=== PATIENT | female | born 1985 | race Caucasian/White ===

== ENCOUNTER 2023-01-03 00:31 | Emergency (ER) | payer MEDICAID ==
[~2023-01-03] VITALS: Ht 160 cm; Wt 83.0 kg
[2023-01-03 00:31] VITALS: BP 137/89
[2023-01-03] MEDS ORDERED: OMEP20TA PO (04:55)
== END 2023-01-03 05:44 | disposition home or self-care (01) ==
LOC: ER 00:31
DX: K21.9 Gastro-esophageal reflux disease without esophagitis (principal); Z88.6 Allergy status to analgesic agent

== ENCOUNTER 2025-03-29 22:26 | Inpatient (IN) | payer MEDICAID ==
[~2025-03-29] VITALS: Ht 160 cm; Wt 170.0 kg
[~2025-03-29 22:26] MED LIST: OMEP20TA PO
[2025-03-29 23:23] LABS: Basophils # (auto) 0.1 10 ^3/uL (0-0.2); Basophils % (auto) 0.8 % (0.0-2.0); Eosinophils # (auto) 0.1 10 ^3/uL (0-0.8); Eosinophils % (auto) 0.6 % (0.0-7.0); Hemoglobin 9.5 g/dL (12.2-16.2); Lymphocytes # (auto) 1.8 10 ^3/uL (0.4-5.4); Lymphocytes % (auto) 16.3 % (10.0-50.0); Mean Corpuscular Hemoglobin 22.3 pg (28.0-32.0); Mean Corpuscular Hgb Conc. 31.7 g/dL (32.0-36.0); Mean Corpuscular Volume 70.5 fL (80.0-100.0); Monocytes # (auto) 0.5 10 ^3/uL (0-1.3); Monocytes % (auto) 4.8 % (0.0-12.0); Neutrophils # (auto) 8.6 10 ^3/uL (1.6-8.6); Neutrophils % (auto) 77.5 % (37.0-80.0); Platelet Count (auto) 321 10^3/uL (140-450); Red Blood Cells 4.26 10^6/uL (4.0-5.20); Red Cell Distribution Width 16.3 % (11.8-14.3)
[2025-03-29 23:29] LABS: Chloride 104 mmol/L (98-107); Potassium 3.7 mmol/L (3.5-5.1); Sodium 138 mmol/L (136-145)
[2025-03-29 23:30] LABS: Anion Gap 12 (5-15); Calcium 8.9 mg/dL (8.7-10.4); Carbon Dioxide 22 mmol/L (20-31)
[2025-03-29] MEDS: SODIUM CHLORIDE 0.9% 2,000 ML IV ONE (23:30)
[2025-03-29 23:35] LABS: BUN/Creatinine Ratio 18.2 (10.0-20.0); Blood Urea Nitrogen 12 mg/dL (9-23); Glucose 120 mg/dL (74-106)
--- NOTE | 2025-03-29 23:59 | ED.PDOC ---
BANQUET CAPTAIN HPI Comments This patient is a pleasant but obese 39-year-old female who arrives to the ED today for evaluation of irregular vaginal bleeding that began several hours ago and has continued. Patient states the bleeding began has been unrelenting to the point of continual vaginal discharge with discharge of golf ball size clots. Patient arrives with her jeans saturated throughout the groin due to excessive bleeding concerns. Patient denies any traumatic events. Patient's last menstrual period was 03/10/2025 and the patient states it was regular in quantity and length. Patient denies any fever nausea or vomiting, but states she does feel lightheaded. Patient was tachycardic at arrival. Chief Complaint: Vaginal Bleed Time Seen by MD: 22:27 Reviewed Notes: Nurses Notes Allergies: Coded Allergies: NO KNOWN ALLERGIES (Unverified , 01/03/23) Home Meds Active Scripts Omeprazole (Gnp Omeprazole) 20 Mg Tab, 1 TAB PO DAILY for 14 Days, #14 TAB 1 Refill Prov:JULIO IRAHETA 01/03/23 Information Source: Patient Mode of Arrival: Ambulatory Timing: Hours Prehospital treatment: None Severity: Severe Bleeding Quality: Bright Red, Clotted Onset Of Mass/Bleeding: Spontaneous Past Medical History PAST MEDICAL HISTORY: GERD Surgical History: Denies all surgeries WAREHOUSE ORDER PICKER History: No Pertinent WAREHOUSE ORDER PICKER History Family History Family History: Reviewed,noncontributory to illness, No family hx of Cancer, No family hx of DM, No family hx of Heart pascual, No family hx of HTN, No family hx ofKidney pascual, No family hx of Liver pascual, No family hx of Lung pascual, No family hx of Stroke Social History Smoker: Non-Smoker Alcohol: Denies ETOH Use Drugs: Denies Drug Use Lives In: Home Constitutional: denies: chills, diaphoresis, fatigue, fever, malaise, sweats, weakness, others EENTM: denies: blurred vision, double vision, ear bleeding, ear discharge, ear drainage, ear pain, ear ringing, eye pain, eye redness, hearing loss, mouth pain, mouth swelling, nasal discharge, nose bleeding, nose congestion, nose pain, photophobia, tearing, throat pain, throat swelling, voice changes, others Respiratory: denies: cough, hemoptysis, orthopnea, SOB at rest, shortness of breath, SOB with excertion, stridor, wheezing, others Cardiovascular: denies: chest pain, dizzy spells, diaphoresis, Dyspnea on exertion, edema, irregular heart beat, left arm pain, lightheadedness, palpitations, PND, syncope, others Gastrointestinal: reports: abdominal pain; denies: abdomen distended, blood streaked bowels, constipated, diarrhea, dysphagia, difficulty swallowing, hematemesis, melena, nausea, poor appetite, poor fluid intake, rectal bleeding, rectal pain, vomiting, others Genitourinary: reports: abnormal vagina bleeding; denies: burning, dyspareunia, dysuria, flank pain, frequency, hematuria, incontinence, pain, , vagina discharge, urgency, others Neurological: reports: weakness; denies: dizziness, fainting, headache, left sided numbness, left sided weakness, numbness, paresthesia, pre-existing deficit, right sided numbness, right sided weakness, seizure, speech problems, tingling, tremors, others Musculoskeletal: denies: back pain, gout, joint pain, joint swelling, muscle pain, muscle stiffness, neck pain, others Integumetry: denies: bruises, change in color, change in hair/nails, dryness, laceration, lesions, lumps, rash, wounds, others Allergic/Immunocompromised: denies: Difficulty Healing, Frequent Infections, Hives, Itching, others Hematologic/Lymphatic: denies: anemia, blood clots, easy bleeding, easy bruising, swollen glands, others Endocrine: denies: excessive hunger, excessive sweating, excessive thirst, excessive urination, flushing, intolerance to cold, intolerance to heat, unexplained weight gain, unexplained weight loss, others Psychiatric: denies: anxiety, bipolar disorder, depression, hopeless, panic disorder, schizophrenia, sleepless, suicidal, others Physical Exam General Appearance: Moderate Distress (Moderate distress due to anxiety related to the bleeding event with some abdominal cramping.), Obese HEENT: Normal ENT Inspection, Pharynx Normal, TMs Normal Neck: Full Range of Motion, Non-Tender, Normal, Normal Inspection Respiratory: Chest Non-Tender, Lungs Clear, No Accessory Muscle Use, No Respiratory Distress, Normal Breath Sounds Cardiovascular: No Edema, No JVD, No Murmur, No Gallop, Normal Peripheral Pulses, Regular Rate/Rhythm Breast Exam: Deferred Gastrointestinal: No Organomegaly, Non Tender, No Pulsatile Mass, Normal Bowel Sounds, Soft Genitalia: Deferred Pelvic: Other (Patient displays august vaginal bleeding in a stream after disrobing and attempting to place pads.) Rectal: Deferred Extremities: No calf tenderness, Normal capillary refill, Normal inspection, Normal range of motion, Non-tender, No pedal edema Neurologic: Alert, No Motor Deficits, Normal Affect, Normal Mood, No Sensory Deficits Cerebellar Function: Normal Reflexes: Normal Skin: Dry, Normal Color, Warm Lymphatic: No Adenopathy Was a procedure done? Was a procedure done?: No Differential Diagnosis (WAREHOUSE ORDER PICKER) Vaginal Bleeding: - Complete, - Incomplete, Abruptio Placentae, Hormonal, Menorrhagia, Menometrorrhagia, Menstrual Bleeding X-Ray, Labs, Meds, VS Vital Signs Date Time Temp Pulse Resp B/P (MAP) Pulse Ox O2 Delivery O2 Flow Rate FiO2 03/29/25 22:41 98.6 113 16 126/85 (99) 98 98.6 Lab Test 03/29/25 23:04 Range/Units White Blood Count 11.0 H 4.4-10.8 10^3/uL Red Blood Count 4.26 4.0-5.20 10^6/uL Hemoglobin 9.5 L 12.2-16.2 g/dL Hematocrit 30.0 L 36.0-46.0 % Mean Corpuscular Volume 70.5 L 80.0-100.0 fL Mean Corpuscular Hemoglobin 22.3 L 28.0-32.0 pg Mean Corpuscular Hemoglobin Concent 31.7 L 32.0-36.0 g/dL Red Cell Distribution Width 16.3 H 11.8-14.3 % Platelet Count 321 140-450 10^3/uL Mean Platelet Volume 8.7 6.9-10.8 fL Neutrophils (%) (Auto) 77.5 37.0-80.0 % Lymphocytes (%) (Auto) 16.3 10.0-50.0 % Monocytes (%) (Auto) 4.8 0.0-12.0 % Eosinophils (%) (Auto) 0.6 0.0-7.0 % Basophils (%) (Auto) 0.8 0.0-2.0 % Neutrophils # (Auto) 8.6 1.6-8.6 10 ^3/uL Lymphocytes # (Auto) 1.8 0.4-5.4 10 ^3/uL Monocytes # (Auto) 0.5 0-1.3 10 ^3/uL Eosinophils # (Auto) 0.1 0-0.8 10 ^3/uL Basophils # (Auto) 0.1 0-0.2 10 ^3/uL Nucleated Red Blood Cells 0.0 % Sodium Level 138 136-145 mmol/L Potassium Level 3.7 3.5-5.1 mmol/L Chloride Level 104 98-107 mmol/L Carbon Dioxide Level 22 20-31 mmol/L Anion Gap 12 5-15 Blood Urea Nitrogen 12 9-23 mg/dL Creatinine 0.66 0.550-1.02 mg/dL Glomerular Filtration Rate Calc 113 >90 mL/min BUN/Creatinine Ratio 18.2 10.0-20.0 Serum Glucose 120 H 74-106 mg/dL Calcium Level 8.9 8.7-10.4 mg/dL Beta HCG, Quantitative 0.5 L 1.5-4.2 mIU/mL X-Ray, Labs, Meds, VS Comment All studies performed in the ED were evaluated by me personally. Patient displays some advancing anemia and an unremarkable beta-hCG. After confirmation of august vaginal bleeding, I discussed the case with the doctors Barrie. She advised giving the patient progesterone and admission for OB consultation in the morning. Additional testing and imaging will be assessed by OB and hospitalist status post admission per hospital protocol. Time of 1ST Reevaluation: 23:57 Reevaluation 1ST: Improved Consultation: PCP, road machinery inspector Patient Education/Counseling: Diagnosis, Treatment Family Education/Counseling: Diagnosis, Treatment Departure 1 Departure Time of Disposition: 23:58 Impression: Primary Impression: Vaginal bleeding Additional Impression: Anemia Disposition: 09 ADMITTED INPATIENT Condition: Stable Discharged With: Self Critical Care Note Critical Care Time?: No Stability Stability form required: No Heart Score Heart Score: Heart Score Response (Comments) Value History N/A 0 EKG N/A 0 Age N/A 0 Risk Factors N/A 0 Troponin N/A 0 Total 0 ROBYN OBREGON PAC Mar 29, 2025 23:59
[2025-03-30] VITALS (7 sets, daily range): BP systolic 109–113; BP diastolic 57–72; PULSE 66–88; RESP 16–18; TEMP 99.4; O2SAT 96–100
[2025-03-30] MEDS ORDERED: ONDANSETRON HCL 4 MG/2 ML VIAL IV PRN (00:30)
[2025-03-30] MEDS ORDERED: HYDROcodone-ACET 5/325MG TAB PO PRN (00:30)
[2025-03-30] MEDS ORDERED: ACETAMINOPHEN 325 MG TAB PO PRN (00:30)
[2025-03-30] MEDS ORDERED: DOCUSATE SOD 100 MG CAP PO PRN (00:30)
[2025-03-30] MEDS: SODIUM CHLORIDE 0.9% 1,000 ML IV SCH (00:39)
[2025-03-30] MEDS: medroxyPROGESTERone ACETATE 5 MG TAB PO ONE (00:40)
[2025-03-30] MEDS ORDERED: NITROGLYCERIN 0.4 MG SL TAB SL PRN (06:00)
[2025-03-30] MEDS ORDERED: MORPHINE SULFATE INJ 2 MG/ml SYRG IV PRN (06:00)
--- NOTE | 2025-03-30 06:04 | DVHHP2 ---
History of Present Illness Reason for Visit: Vaginal bleeding History of Present Illness The patient is a 39-year-old female with past medical history of GERD who presented to [facility] ED for evaluation of irregular vaginal bleeding. Patient reports the bleeding has been unrelenting to the point of continual vaginal discharge with discharge of golf ball size clots. Patient arrives with her jeans saturated throughout the groin due to excessive bleeding concerns. Patient's last menstrual period was 03/10/2025 and the patient states it was regular in quantity and length. Patient was seen and evaluated in the ED, laboratory data shows WBC 11.0, hemoglobin 9.5, hematocrit 30.0, platelets 321, sodium 138, potassium 3.7, BUN 12, creatinine 0.66, glucose 120, calcium 8.9, blood pressure 126/85, heart rate 1 one two, temperature 98.6 F, O2 saturation 98% on room air. On my assessment, patient denied chest pain, no headache, no dizziness, no diaphoresis, no shortness of breaths, no nausea, no vomiting, no fever, no chills. Patient was admitted for evaluation and medical management. Past Medical History GERD Past Surgical History Denies all surgeries Family History Reviewed, noncontributory to the management of this case. Past Social History The patient lives at home, denies smoking, alcohol or illicit drugs abuse. Review of Systems Constitutional: Yes: Weakness; No: Fever, Chills, Sweats, Malaise, Other Eyes: No: Pain, Vision change, Conjunctivae inflammation, Eyelid inflammation, Other, Redness ENT: No: Ear pain, Ear discharge, Nose pain, Nose discharge, Nose congestion, Mouth pain, Mouth swelling, Throat pain, Throat swelling, Other Respiratory: No: Cough, Dry, Shortness of breath, SOB with excertion, Wheezing, Hemoptysis, Pleuritic Pain, Sputum, Wheezing, Other Cardiovascular: No: Chest Pain, Palpitations, Orthopnea, Paroxysmal Noc. Dyspnea, Edema, Lt Headedness, Other Gastrointestinal: Abdominal Pain; No: Nausea, Vomiting, Diarrhea, Constipation, Melena, Hematochezia, Other Genitourinary: No Dysuria, No Frequency, No Incontinence, No Hematuria, No Retention; Other (Vaginal bleeding) Musculoskeletal: No: other, neck pain, shoulder pain, arm pain, back pain, hand pain, leg pain, foot pain Skin: No: Rash, Lesions, Jaundice, Bruising, Other Neurological: No: Weakness, Numbness, Incoordination, Change in speech, Confusion, Seizures, Other Allergies: Coded Allergies: NO KNOWN ALLERGIES (Unverified , 01/03/23) Medications Current Medications Medications Dose Ordered Sig/Bety Route Start Time Stop Time Status Last Admin Dose Admin Sodium Chloride 1,000 ml @ 60 mls/hr [id number] IV 03/30/25 00:30 03/30/25 00:39 60 MLS/HR Acetaminophen/ Hydrocodone Bitart 1 tab Q4HP PRN PO 03/30/25 00:30 Ondansetron HCl 4 mg Q4HP PRN IV 03/30/25 00:30 Docusate Sodium 100 mg BIDPRN PRN PO 03/30/25 00:30 Acetaminophen 650 mg Q6HP PRN PO 03/30/25 00:30 Pantoprazole Sodium 40 mg DAILY IV 03/30/25 10:00 Nitroglycerin 0.4 mg Q5MINP PRN SL 03/30/25 06:00 UNV Morphine Sulfate 2 mg Q30M PRN IV 03/30/25 06:00 UNV Exam Vital Signs Vital Signs Date Time Temp Pulse Resp B/P (MAP) Pulse Ox O2 Delivery O2 Flow Rate FiO2 03/30/25 05:00 84 19 102/63 (76) 95 03/30/25 00:00 Room Air* 0 21 03/29/25 23:44 97.9 97.9 General Appearance: Alert, Oriented X3, Cooperative, No acute distress HEENT: Atraumatic, PERRLA, EOMI, Mucous membr. moist/pink Respiratory: Clear to auscultation, Normal air movement Cardiovascular: Regular rate, Normal S1, Normal S2, No murmurs Abdominal: Normal bowel sounds, Soft, No hepatospenomegaly, No masses, Other (Reports tenderness) Extremities: No clubbing, No cyanosis, No edema, Normal pulses, No tenderness/swelling Skin: No rashes, No breakdown, No significant lesion Neuro: Normal gait, Normal speech, Strength at 5/5 X4 ext, Normal tone, Sensation intact, Cranial nerves 3-12 NL, Reflexes 2+ Psych/Mental Status: Mental status NL, Mood NL Labs/Xrays Labs Test 03/29/25 23:04 Range/Units White Blood Count 11.0 H 4.4-10.8 10^3/uL Red Blood Count 4.26 4.0-5.20 10^6/uL Hemoglobin 9.5 L 12.2-16.2 g/dL Hematocrit 30.0 L 36.0-46.0 % Mean Corpuscular Volume 70.5 L 80.0-100.0 fL Mean Corpuscular Hemoglobin 22.3 L 28.0-32.0 pg Mean Corpuscular Hemoglobin Concent 31.7 L 32.0-36.0 g/dL Red Cell Distribution Width 16.3 H 11.8-14.3 % Platelet Count 321 140-450 10^3/uL Mean Platelet Volume 8.7 6.9-10.8 fL Neutrophils (%) (Auto) 77.5 37.0-80.0 % Lymphocytes (%) (Auto) 16.3 10.0-50.0 % Monocytes (%) (Auto) 4.8 0.0-12.0 % Eosinophils (%) (Auto) 0.6 0.0-7.0 % Basophils (%) (Auto) 0.8 0.0-2.0 % Neutrophils # (Auto) 8.6 1.6-8.6 10 ^3/uL Lymphocytes # (Auto) 1.8 0.4-5.4 10 ^3/uL Monocytes # (Auto) 0.5 0-1.3 10 ^3/uL Eosinophils # (Auto) 0.1 0-0.8 10 ^3/uL Basophils # (Auto) 0.1 0-0.2 10 ^3/uL Nucleated Red Blood Cells 0.0 % Sodium Level 138 136-145 mmol/L Potassium Level 3.7 3.5-5.1 mmol/L Chloride Level 104 98-107 mmol/L Carbon Dioxide Level 22 20-31 mmol/L Anion Gap 12 5-15 Blood Urea Nitrogen 12 9-23 mg/dL Creatinine 0.66 0.550-1.02 mg/dL Glomerular Filtration Rate Calc 113 >90 mL/min BUN/Creatinine Ratio 18.2 10.0-20.0 Serum Glucose 120 H 74-106 mg/dL Calcium Level 8.9 8.7-10.4 mg/dL Beta HCG, Quantitative 0.5 L 1.5-4.2 mIU/mL Assessment/Plan Assessment/Plan Vaginal bleeding Anemia, unspecified Leukocytosis, unspecified Generalized weakness Plan 1. Admit to telemetry unit 2. Breathing treatment 3. Pain control management 4. Management of fluids and electrolytes 5. Consultation for OBGYN 6. Diagnostic tests chest x-ray 7. DVT prophylaxis-on SCDs 8. Repeat labs CBC, CMP in a.m. 9. Continue with current medical management 10. Treatment plan discussed with patient and RN. Patient verbalized understanding. Plan discussed with: Patient, Other (RN) My Orders Orders - JOSELYN GRIFFIN DNP Procedure Category Date Status Time * Seo Marketing Specialist Consultation CONS 03/30/25 Transmitted 00:28 Allergies JAYRO 03/30/25 In Process 00:28 Code Status CODE 03/30/25 Transmitted 00:28 Sodium Chloride 0.9% PHA 03/30/25 In Process 00:30 Oxygen Per Hour RT 03/30/25 Transmitted 00:28 Hydrocodone-Acet PHA 03/30/25 In Process 5/325mg Tab ([place] 00:30 Ondansetron Hcl PHA 03/30/25 In Process (Zofran) 00:30 Docusate Sodium PHA 03/30/25 In Process Capsule (Colace 00:30 Condition: Serious JAYRO 03/30/25 In Process 00:28 Acetaminophen Tablet PHA 03/30/25 In Process (Tylenol Tablet) 00:30 Bedrest With Bathroom JAYRO 03/30/25 In Process Privileg 00:28 Sequential JAYRO 03/30/25 In Process Compression Device Pantoprazole PHA 03/30/25 In Process (Protonix) 10:00 Vitamin B12 LAB 03/30/25 Logged 05:47 Iron Panel LAB 03/30/25 Logged 05:47 Urinalysis LAB 03/30/25 Logged 05:47 Urine Bacterial LEORA 03/30/25 Logged Culture 05:47 Admit ADMIT 03/30/25 Transmitted 05:47 Nitroglycerin PHA 03/30/25 Logged Sublingual (Ntrostat 06:00 Morphine Sulfate PHA 03/30/25 Logged Injection 06:00 Stat Ekg For Chest JAYRO 03/30/25 In Process Pain 05:47 Notify Of Changes JAYRO 03/30/25 In Process From Base 05:47 Manager Analysis For JAYRO 03/30/25 In Process 24 Hours 05:47 Emergency Dysrhythmia JAYRO 03/30/25 In Process Protocol 05:47 Rhythm Strips Once JAYRO 03/30/25 In Process Every Shift 05:47 Oxygen By Nasal RT 03/30/25 Transmitted Cannula 05:47 Problem List: (1) Vaginal bleeding (2) Anemia, unspecified (3) Leukocytosis, unspecified (4) Generalized weakness Date of Service: Mar 30, 2025 Billing Provider: JOSELYN GRIFFIN DNP Common Visit Codes: [id number] INP/OBS CARE (HIGH) JOSELYN GRIFFIN DNP Mar 30, 2025 06:04
[2025-03-30] MEDS: cefTRIAXone 1GM/50ML D5W 50 ML IV ONE (06:23)
[2025-03-30 06:55] LABS: % Iron Saturation 5.8 % (15-50)
[2025-03-30 09:22] LABS: Urine Bacteria FEW /hpf (None Seen); Urine Blood TRACE /uL (Negative); Urine Clarity Clear (Clear); Urine Protein, UAD Negative (Negative); Urine Specific Gravity 1.008 (1.001-1.035); Urine Squamous Epithelial Cell FEW /hpf (<5); Urine Urobilinogen Normal (Negative); Urine WBC < 1 /HPF (0-5); Urine pH 6.5 (5.0-9.0)
[2025-03-30 09:38] LABS: Urine Color Light-Yellow (Yellow)
[2025-03-30] MEDS: PANTOPRAZOLE 40 MG/10 ML VIAL INJ IV SCH (10:35)
--- NOTE | 2025-03-30 12:45 | DVH ---
Technique: Real-time ultrasound images through the pelvis using a transabdominal transducer. Indication: AUB Comparison: None Findings: The uterus measures 13.1 cm. The endometrial stripe measures 9 mm. Presence of a lower anterior C-s ection scar. There is enlargement/ prominence of the cervical region measuring at least 3.4 cm Right ovary measures 3.3 x 2 x 2.7 cm. Normal flow on color doppler images. No focal masses are ident ified. Left ovary measures 4.3 x 2.6 x 2.5 cm. Normal flow on color doppler images. No focal masses are yesi ntified. There is no significant free fluid in the pelvis. Impression: 1. Asymmetrical prominence within the cervical region measuring at least 3.4 cm which could represent a mass / neoplasm, blood products. Recommend plug machine operator consultation for further evaluation. 2. Prominent uterine size.
[2025-03-30 12:54] LABS: Basophils # (auto) 0.1 10 ^3/uL (0-0.2); Eosinophils # (auto) 0 10 ^3/uL (0-0.8); Lymphocytes # (auto) 1.9 10 ^3/uL (0.4-5.4); Mean Corpuscular Volume 71.5 fL (80.0-100.0); Monocytes # (auto) 0.5 10 ^3/uL (0-1.3)
[2025-03-30 12:55] LABS: Basophils % (auto) 0.8 % (0.0-2.0); Eosinophils % (auto) 0.3 % (0.0-7.0); Hematocrit 25.1 % (36.0-46.0); Lymphocytes % (auto) 19.7 % (10.0-50.0); Mean Corpuscular Hemoglobin 22.8 pg (28.0-32.0); Mean Corpuscular Hgb Conc. 31.9 g/dL (32.0-36.0); Monocytes % (auto) 4.7 % (0.0-12.0); Neutrophils # (auto) 7.3 10 ^3/uL (1.6-8.6); Neutrophils % (auto) 74.5 % (37.0-80.0); Platelet Count (auto) 242 10^3/uL (140-450); Red Blood Cells 3.51 10^6/uL (4.0-5.20); Red Cell Distribution Width 16.5 % (11.8-14.3); White Blood Cell 9.8 10^3/uL (4.4-10.8)
--- NOTE | 2025-03-30 14:00 | DVHPN2 ---
Assessment/Plan Assessment/Plan Progress note 39 F with no significant PMH admitted for AUB. LMP 5/24, 28 days cycle, 3-4 pads daily for 4-5 days. Reported heavier flow and clots. Last papsmear years ago after last delivery (>9 years). Physical exam AOx4 PERLLA MMM Clear breath sounds S1 S2 rrr no murmur abdomen soft nontender No LE edema Labs ekg imaging reviewed asymmetrical prominence within the cervical region in pelvic US Assessment and plan AUB JOE exacerbated by acute bleeding sleep scientist consult NPO type and screen iron supp daily h/h diet NPO dvt ppx ambulatory Plan discussed with: Patient My Orders Orders - MELANY LOMBARDO MD Procedure Category Date Status Time Complete Blood Count LAB 03/30/25 In Process 12:00 Pelvic US 03/30/25 Resulted 12:01 * Ripper Operator Consultation CONS 03/30/25 Transmitted 13:48 Date of Service: Mar 30, 2025 Billing Provider: MELANY LOMBARDO MD Common Visit Codes: [id number] INP/OBS CARE(HIGH) MELANY LOMBARDO MD Mar 30, 2025 14:00
--- NOTE | 2025-03-30 15:51 | DVHINCON2 ---
Date of service: Mar 30, 2025 Referring Physician MD Marbin Reason for Consultation Acute vaginal bleeding w/ anemia History of Present Illness HPI 39y C/S x 1 , 3 living children (twins) Hx of Anemia and irreg menses. Denies prior hx of blood transfusions LMP 03/29/25. Admitted w/ excessive menstrual bleeding and near syncope. Currently, no longer bleeding. Denies dizziness, palpitations, weakness or fa tigue. Referred for ARTIFICIAL SNOW MAKING MACHINE OPERATOR consult due to possible cx neoplasm seen on pelvic us. Pelvic exam in ARTIFICIAL SNOW MAKING MACHINE OPERATOR clinic is NORMAL, no masses seen. No acute bleeding (resolved) Home Meds Active Scripts Omeprazole (Gnp Omeprazole) 20 Mg Tab, 1 TAB PO DAILY for 14 Days, #14 TAB 1 Refill Prov:JULIO IRHAETA PRODUCT SUPPORT ANALYST 01/03/23 Past Medical History Cardiac: No pertinent Hx Pulmonary: No pertinent Hx Central Nervous System: No pertinent Hx GI: No pertinent Hx Hemotology/Oncology: Anemia NOS Hepatobiliary: No pertinent Hx Psychiatric: No pertinent Hx Musculoskeletal: No pertinent Hx Rheumotologic: No pertinent Hx Infectious Disease: No peritnent Hx ENT: No pertinent Hx Renal/: No pertinent Hx Endocrine: No pertinent Hx Dermatology: No pertinent Hx Past Surgical History: Family History: No pertinent Hx Smoker: No Hx (Negative) Occupation: RN Student Alocohol: None Drugs: None Lives with: With family Domestic Violence: Neg Review of Systems Constitutional: Malaise, Weakness Ears, Nose, & Throat: No symptom reported Eyes: No symptom reported Pulmonary/Respiratory: No symptom reported Cardiovascular: No symptom reported Gastrointestinal: No symptom reported Genitourinary: No symptom reported Musculoskeletal: No symptom reported Skin: No symptom reported Psychiatric: No symptom reported Endocrine: No symptom reported Hemotologic/Lymphatic: No symptom reported H&P Exam Vital Signs Vital Signs Date Time Temp Pulse Resp B/P (MAP) Pulse Ox O2 Delivery O2 Flow Rate FiO2 03/30/25 15:22 76 16 109/68 (82) 97 03/30/25 13:00 Room Air* 0 21 03/30/25 08:00 98.4 98.4 General Appeara: Well developed, Well nourished, Normal Appearance Head Exam: Normal inspection Neck Exam: Normal inspection Eye Exam: bilateral eye PERRL Nasal Exam: Normal inspection Mouth: Normal Inspection Pulmonary/Respiratory: Normal inspection Cardiovascular/Chest: Normal inspection Abdominal Exam: No tenderness, No masses Rectal Exam: Deferred Pelvic Exam: External exam normal, Speculum exam normal, Tender uterus (Globular uterus, 14 wk size, tender), Other (No cervical masses or lesions, no active bleeding, mild spotting only. PAP obtained) CHANNEL ROUGHER Exam: Normal hearing, Normal speech Neuro/Mental St: Alert, Oriented Appearance: Appropriate appearance Thoughts/Psych: Normal thought pattern Labs/Xrays Labs Test 03/30/25 08:30 03/30/25 06:18 03/29/25 23:04 Range/Units Urine Color Light-yellow Yellow Urine Clarity Clear Clear Urine pH 6.5 5.0-9.0 Urine Specific [place] 1.008 1.001-1.035 Urine Protein Negative Negative Urine Ketones Negative Negative Urine Blood Trace H Negative /uL Urine Nitrite Negative Negative Urine Bilirubin Negative Negative Urine Urobilinogen Normal Negative mg/dL Urine Leukocyte Esterase Negative Negative /uL Urine RBC 6 0 - 4 /hpf Urine Microscopic WBC < 1 0-5 /HPF Urine Squamous Epithelial Cells Few <5 /hpf Urine Bacteria Few H None Seen /hpf Urine Glucose Normal Normal mg/dL White Blood Count 9.8 4.4-10.8 10^3/uL Red Blood Count 3.51 L 4.0-5.20 10^6/uL Hemoglobin 8.0 #L 12.2-16.2 g/dL Hematocrit 25.1 #L 36.0-46.0 % Mean Corpuscular Volume 71.5 L 80.0-100.0 fL Mean Corpuscular Hemoglobin 22.8 L 28.0-32.0 pg Mean Corpuscular Hemoglobin Concent 31.9 L 32.0-36.0 g/dL Red Cell Distribution Width 16.5 H 11.8-14.3 % Platelet Count 242 140-450 10^3/uL Mean Platelet Volume 9.5 6.9-10.8 fL Neutrophils (%) (Auto) 74.5 37.0-80.0 % Lymphocytes (%) (Auto) 19.7 10.0-50.0 % Monocytes (%) (Auto) 4.7 0.0-12.0 % Eosinophils (%) (Auto) 0.3 0.0-7.0 % Basophils (%) (Auto) 0.8 0.0-2.0 % Neutrophils # (Auto) 7.3 1.6-8.6 10 ^3/uL Lymphocytes # (Auto) 1.9 0.4-5.4 10 ^3/uL Monocytes # (Auto) 0.5 0-1.3 10 ^3/uL Eosinophils # (Auto) 0 0-0.8 10 ^3/uL Basophils # (Auto) 0.1 0-0.2 10 ^3/uL Nucleated Red Blood Cells 0.0 % Iron Level 20 L 50-170 ug/dL Total Iron Binding Capacity 346 250-425 ug/dL Percent Iron Saturation 5.8 L 15-50 % Ferritin 2.1 L 10-291 ng/mL Vitamin B12 Level 399 211-911 pg/mL Sodium Level 138 136-145 mmol/L Potassium Level 3.7 3.5-5.1 mmol/L Chloride Level 104 98-107 mmol/L Carbon Dioxide Level 22 20-31 mmol/L Anion Gap 12 5-15 Blood Urea Nitrogen 12 9-23 mg/dL Creatinine 0.66 0.550-1.02 mg/dL Glomerular Filtration Rate Calc 113 >90 mL/min BUN/Creatinine Ratio 18.2 10.0-20.0 Serum Glucose 120 H 74-106 mg/dL Calcium Level 8.9 8.7-10.4 mg/dL Beta HCG, Quantitative 0.5 L 1.5-4.2 mIU/mL Assessment/Plan Admitting Diagnosis: 1. Abnormal uterine bleeding, suspected adenomyosis 2. Cervical mass/neoplasm not found on pelvic exam 3. Acute on chronic anemia Plan Recommend medical mgmt of AUB Patient declined Depo Provera injection in office She is not acutely bleeding. Would recommend Provera 10mg PO daily x 10 days F/U in ARTIFICIAL SNOW MAKING MACHINE OPERATOR clinic in 2 wk for further mgmt PAP performed in clinic today May discharge if remains hemodynamically stable. ARTIFICIAL SNOW MAKING MACHINE OPERATOR will sign off Thank you for allowing me to participate in the care of this patient Plan discussed with: Patient Date of Service: Mar 30, 2025 Billing Provider: ANDREY SOW DO Common Visit Codes: CONSULT ONLY Consultation Codes: [id number] CONSULT <45MIN ANDREY SOW DO Mar 30, 2025 15:51
[2025-03-30] MEDS: medroxyPROGESTERone ACETATE 5 MG TAB PO SCH (18:00)
[2025-03-30] MEDS: FERROUS SULFATE 325mg EC TAB PO SCH (18:33)
[2025-03-31] VITALS (7 sets, daily range): BP systolic 92–112; BP diastolic 57–72; PULSE 16–82; RESP 16–20; TEMP 97.8–98.4; O2SAT 97–99
[2025-03-31 08:13] LABS: Basophils # (auto) 0.1 10 ^3/uL (0-0.2); Basophils % (auto) 0.9 % (0.0-2.0); Eosinophils # (auto) 0.1 10 ^3/uL (0-0.8); Lymphocytes # (auto) 2.3 10 ^3/uL (0.4-5.4); Monocytes # (auto) 0.4 10 ^3/uL (0-1.3); Monocytes % (auto) 5.8 % (0.0-12.0); Red Blood Cells 4.09 10^6/uL (4.0-5.20)
[2025-03-31 08:15] LABS: Eosinophils % (auto) 1.4 % (0.0-7.0); Hematocrit 29.4 % (36.0-46.0); Hemoglobin 9.5 g/dL (12.2-16.2); Lymphocytes % (auto) 31.9 % (10.0-50.0); Mean Corpuscular Hemoglobin 23.1 pg (28.0-32.0); Mean Corpuscular Hgb Conc. 32.2 g/dL (32.0-36.0); Mean Corpuscular Volume 71.8 fL (80.0-100.0); Neutrophils # (auto) 4.4 10 ^3/uL (1.6-8.6); Platelet Count (auto) 266 10^3/uL (140-450); Red Cell Distribution Width 16.4 % (11.8-14.3); White Blood Cell 7.3 10^3/uL (4.4-10.8)
[2025-03-31] MEDS ORDERED: cefTRIAXone 1GM/50ML D5W 50 ML IV SCH (09:00)
[2025-03-31] MEDS ORDERED: MEDR5TAB28 PO (13:09)
[2025-03-31] MEDS ORDERED: FER325T PO (13:09)
--- NOTE | 2025-03-31 15:27 | DVHDS2 ---
Discharge Summary Date of Admission Mar 30, 2025 at 05:47 Date of Discharge: Mar 31, 2025 Labs/Diagnostic Data: Laboratory Results Test 03/31/25 07:56 03/30/25 08:30 03/30/25 06:18 03/29/25 23:04 White Blood Count 7.3 10^3/uL (4.4-10.8) Red Blood Count 4.09 10^6/uL (4.0-5.20) Hemoglobin 9.5 g/dL (12.2-16.2) Hematocrit 29.4 % (36.0-46.0) Mean Corpuscular Volume 71.8 fL (80.0-100.0) Mean Corpuscular Hemoglobin 23.1 pg (28.0-32.0) Mean Corpuscular Hemoglobin Concent 32.2 g/dL (32.0-36.0) Red Cell Distribution Width 16.4 % (11.8-14.3) Platelet Count 266 10^3/uL (140-450) Mean Platelet Volume 8.2 fL (6.9-10.8) Neutrophils (%) (Auto) 60.0 % (37.0-80.0) Lymphocytes (%) (Auto) 31.9 % (10.0-50.0) Monocytes (%) (Auto) 5.8 % (0.0-12.0) Eosinophils (%) (Auto) 1.4 % (0.0-7.0) Basophils (%) (Auto) 0.9 % (0.0-2.0) Neutrophils # (Auto) 4.4 10 ^3/uL (1.6-8.6) Lymphocytes # (Auto) 2.3 10 ^3/uL (0.4-5.4) Monocytes # (Auto) 0.4 10 ^3/uL (0-1.3) Eosinophils # (Auto) 0.1 10 ^3/uL (0-0.8) Basophils # (Auto) 0.1 10 ^3/uL (0-0.2) Nucleated Red Blood Cells 0.0 % Urine Color Light-yellow (Yellow) Urine Clarity Clear (Clear) Urine pH 6.5 (5.0-9.0) Urine Specific [place] 1.008 (1.001-1.035) Urine Protein Negative (Negative) Urine Ketones Negative (Negative) Urine Blood Trace /uL (Negative) Urine Nitrite Negative (Negative) Urine Bilirubin Negative (Negative) Urine Urobilinogen Normal mg/dL (Negative) Urine Leukocyte Esterase Negative /uL (Negative) Urine RBC 6 /hpf (0 - 4) Urine Microscopic WBC < 1 /HPF (0-5) Urine Squamous Epithelial Cells Few /hpf (<5) Urine Bacteria Few /hpf (None Seen) Urine Glucose Normal mg/dL (Normal) Iron Level 20 ug/dL (50-170) Total Iron Binding Capacity 346 ug/dL (250-425) Percent Iron Saturation 5.8 % (15-50) Ferritin 2.1 ng/mL (10-291) Vitamin B12 Level 399 pg/mL (211-911) Sodium Level 138 mmol/L (136-145) Potassium Level 3.7 mmol/L (3.5-5.1) Chloride Level 104 mmol/L (98-107) Carbon Dioxide Level 22 mmol/L (20-31) Anion Gap 12 (5-15) Blood Urea Nitrogen 12 mg/dL (9-23) Creatinine 0.66 mg/dL (0.550-1.02) Glomerular Filtration Rate Calc 113 mL/min (>90) BUN/Creatinine Ratio 18.2 (10.0-20.0) Serum Glucose 120 mg/dL (74-106) Calcium Level 8.9 mg/dL (8.7-10.4) Beta HCG, Quantitative 0.5 mIU/mL (1.5-4.2) Other Laboratory Tests 03/31/25 07:56 03/29/25 23:04 Brief Hx & Hospital Course: 39 F with no significant PMH admitted for AUB. LMP 03/10, 28 days cycle, 3-4 pads daily for 4-5 days. Reported heavier flow and clots. Last papsmear years ago after last delivery (>9 years). pelvic us showed asymmetrical prominence within the cervical region in pelvic US. seen by DIRECTOR OF CASEWORK SERVICES, pelvic exam did not expose mass. to follow up outpatient. H/H stable, acute AUB resolved. dc with provera and iron. f/u pap result with what job titles mean Condition at Discharge: Good Final Diagnosis/Problems List AUB JOE exacerbated by acute bleeding Discharge Disposition: Home Discharge Instruct/Medications Diet: Regular Diet comment: Diet: Regular. Activity: No Restrictions, As Tolerated Activity comment: Activity: No restriction/as tolerated. Follow Up/Referral: what job titles mean dc clinic Medications: provera iron Discharge Statement: "Patient was advised to return to the ER or call 911 if any headaches, dizziness, shortness of breath, chest pain, abdominal pain, bleeding, fevers, or worsening of medical condition. Patient was counseled about treatment plan, medications, possible side effects, patientverbalized understanding. All questions were answered to the best of my ability. This discharge took greater then 30 minutes in planning, reviewing documentation, counseling the patient, and discussing with other team members." ASSESSMENT ASSESSMENT Assessment AUB Date of Service: Mar 31, 2025 Billing Provider: MELANY LOMBARDO MD Common Visit Codes: 26934-IAQ/OBS DISCH DAY >30min MELANY LOMBARDO MD Mar 31, 2025 15:27
== END 2025-03-31 15:30 | disposition home or self-care (01) | DRG 532 ==
LOC: ER 22:26 → OVERFLOW 03-30 05:47 → TELE-WESTW 03-30 08:56
PROVIDERS: ADMIT Student in an Organized Health Care Education/Training Program; ATTEND Student in an Organized Health Care Education/Training Program
DX: N93.9 Abnormal uterine and vaginal bleeding, unspecified (principal); Z68.44 Body mass index [BMI] 60.0-69.9, adult; D64.9 Anemia, unspecified; E66.9 Obesity, unspecified; K21.9 Gastro-esophageal reflux disease without esophagitis; D72.829 Elevated white blood cell count, unspecified
CPT/HCPCS: 36415; 76856; 80048; 81001; 82607; 82728; 83540; 83550; 84702; 85025; 86850; 86900; 86901; 87086; 96360; G0378; J2470